=== PATIENT | female | born 1995 | race Caucasian/White ===

== ENCOUNTER → 2022-05-04 | Outpatient (CLI) | payer BC ==
[2022-05-04 22:49] LABS: HCT 29.5 % (37.2-46.3); HGB 9.9 g/dL (12.0-15.0); MCH 30.2 pg (27.0-32.0); MCHC 33.6 g/dL (32.0-37.0); MCV 89.9 fL (80.0-97.0); Mean Platelet Volume 10.6 fL (9.5-12.2); NRBC Per 100 WBC 0 /100 WBCS (0.0-0.0); Platelet Count 229 X 10*3/uL (140-440); RBC 3.28 X 10*6/uL (4.10-5.20); RDW 11.4 % (11.5-14.5); WBC 9.66 X 10*3/uL (4.50-10.00)
== END | disposition home or self-care (01) ==
LOC: LABWHC1 15:04
PROVIDERS: ATTEND Obstetrics & Gynecology Obstetrics
DX: Z36.9 Encounter for antenatal screening, unspecified (principal)
CPT/HCPCS: 36415; 82950; 85027

== ENCOUNTER 2022-07-13 10:56 | Inpatient (IN) | payer BC ==
[2022-07-14] MEDS: LACTATED RINGERS 1,000 ML IV SCH ×2 (06:30→16:31)
[2022-07-14] MEDS ORDERED: CARBOPROST TROMETHAMINE 250 MCG/ML 1 ML AMP IM PRN (07:55)
[2022-07-14] MEDS ORDERED: TERBUTALINE 1 MG/ML VIAL SQ PRN (07:55)
[2022-07-14] MEDS ORDERED: LIDOCAINE 0.5% (PF) 5 MG/ML (50 ML SDV) SQ PRN (07:55)
[2022-07-14] MEDS ORDERED: OXYTOCIN 10 UNIT/ML 1 ML VIAL IM PRN (07:55)
[2022-07-14] MEDS ORDERED: METHYLERGONOVINE 0.2 MG/ML 1 ML AMP IM PRN (07:55)
[2022-07-14] MEDS ORDERED: OXYTOCIN 30 UNITS/500 ML NS 30 UNIT in SALINE 1 500ML.BAG IV SCH ×2 (08:00→18:30)
[2022-07-14 08:33] LABS: Basophils % (A) 0 %; Eosinophils # (A) 0.1 k/uL (0-0.7); Eosinophils % (A) 1 %; HCT 29.6 % (34.0-46.0); HGB 10.1 gm/dL (11.4-16.0); Lymphocytes # (A) 1.3 k/uL (1.0-4.8); Lymphocytes % (A) 14 %; MCH 29.3 pg (25.0-35.0); MCHC 34.2 g/dL (31.0-37.0); MCV 85.8 fL (80.0-100.0); Mean Platelet Volume 9.7; Monocytes # (A) 0.4 k/uL (0-1.0); Monocytes % (A) 5 %; Neutrophils # (A) 6.8 k/uL (1.3-7.7); Neutrophils % (A) 79 %; Platelet Count 205 k/uL (150-450); RBC 3.45 m/uL (3.80-5.40); RDW 11.8 % (11.5-15.5); WBC 8.7 k/uL (3.8-10.6)
[2022-07-14] MEDS ORDERED: diphenhydrAMINE 25 MG CAP PO PRN (18:27)
[2022-07-14] MEDS ORDERED: diphenhydrAMINE 50 MG CAP PO PRN (18:27)
[2022-07-14] MEDS ORDERED: ZOLPIDEM 5 MG TAB PO PRN (18:27)
[2022-07-14] MEDS ORDERED: BENZOCAINE/MENTHOL SPRAY 1 GM/SPRAY AEROSOL TOPICAL PRN (18:27)
[2022-07-14] MEDS ORDERED: ACETAMINOPHEN TAB 325 MG TAB PO PRN (18:27)
[2022-07-14] MEDS ORDERED: LANOLIN CREAM 5 GM TUBE TOPICAL PRN (18:27)
[2022-07-14] MEDS ORDERED: HYDROCORTISONE 2.5% RECTAL CREAM 30 GM TUBE RECTAL PRN (18:27)
[2022-07-14] MEDS ORDERED: SIMETHICONE 80 MG CHEWABLE PO PRN (18:27)
[2022-07-14] MEDS ORDERED: diphenhydrAMINE 50 MG/ML 1 ML VIAL IVP PRN ×2 (18:27)
--- NOTE | 2022-07-14 18:31 | P.HPOB ---
History of Present Illness H&P Date: 07/14/22 Chief Complaint: IUP at 40-0/7 weeks This is a 27-year-old 1 para 0 at 40-0/7 weeks that presents to labor and delivery for elective induction of labor. Patient has been receiving routine care with myself which has been essentially uncomplicated. Patient notes good movement denies contractions vaginal bleeding or loss of fluid. Patient has a known blood type of B+, rubella status immune, B surface antigen negative, HIV negative, RPR is nonreactive, group beta strep culture negative. Review of Systems Constitutional: Denies chills, Denies fatigue, Denies fever Ears, nose, mouth and throat: Denies headache Cardiovascular: Reports leg edema Respiratory: Denies dyspnea Gastrointestinal: Denies constipation, Denies diarrhea, Denies nausea, Denies vomiting Genitourinary: Reports Past Medical History Past Medical History: No Reported History History of Any Multi-Drug Resistant Organisms: None Reported Past Surgical History: No Surgical Hx Reported Past Psychological History: No Psychological Hx Reported Smoking Status: Never smoker Past Alcohol Use History: None Reported Past Drug Use History: None Reported - Past Family History Mother Family Medical History: Diabetes Mellitus Medications and Allergies Allergies Allergy/AdvReac Type Severity Reaction Status Date / Time No Known Allergies Allergy Verified 07/14/22 06:57 Exam Osteopathic Statement: *. No significant issues noted on an osteopathic structural exam other than those noted in the History and Physical/Consult. Vital Signs Temp Pulse Resp BP Pulse Ox 07/14/22 06:32 98.2 F 100 16 119/65 100 Intake and Output 07/13/22 07/14/22 07/14/22 22:59 06:59 14:59 Other: Weight 72.575 kg Targeted physical exam is performed in this date and offset label rewinder a well-nourished well-developed female in no acute distress, breathing is noted to be nonlabored, heart has regular rhythm, abdomen is gravid and appropriate for gestational age, cervical exam is 1-2/50/-2 station amniotomy is performed and clear fluid was obtained. heart tones are noted to be category 1 and she is melanie irregularly. Results Result Diagrams: 07/14/22 06:50 Assessment and Plan (1) Term Current Visit: Yes Status: Acute Code(s): Z34.90 - ENCNTR FOR SUPRVSN OF NORMAL , UNSP, UNSP TRIMESTER SNOMED Code(s): 40181084 Plan: We 7-year-old 1 para 0 at 40-0/7 weeks that presents to labor and delivery for induction of labor. Patient was admitted to labor and delivery and Pitocin induction of labor was begun. Patient underwent amniotomy and clear fluid was obtained. Patient is offered Stadol/nitrous/epidural. Patient will consider but does wish to deliver unmedicated.
--- NOTE | 2022-07-14 18:36 | P.PROBDLV ---
Vaginal Delivery Note - . Vaginal Delivery Note: Viable male delivered at 1807, weight of 8 lbs. 0 oz., Apgars of 9 and 9 at one and 5 minutes respectfully. 27-year-old 1 para 0 at 40-0/7 weeks that presented to labor and delivery this morning for induction of labor. Patient was admitted and Pitocin induction of labor was begun. Patient has been receiving routine care which has been essentially uncomplicated. Patient progressed through labor making good progress. Patient progressed to complete and began pushing. With excellent maternal effort patient did bring the infant down to a presentation. Patient was placed in a modified lithotomy position and with excellent maternal effort the anterior/posterior shoulder was delivered followed by the body. A spontaneous cry was noted at . Prior to delivery a midline episiotomy was performed after instillation of lidocaine. After two-minute delayed the umbilical cord was doubly clamped and cut. The placenta was delivered spontaneously intact with a three-vessel cord being noted. The midline episiotomy was noted to be a second-degree in nature no extension was appreciated. After instillation with lidocaine the repair was completed with 3-0 Rapide. Hemostasis was appreciated after. Uterus is noted be firm and below the umbilicus. Once again the episiotomy was inspected and hemostasis was appreciated. All counts were noted to be correct 2 at the end of the delivery. Patient and tolerated delivery well and are resting comfortably.
[2022-07-14] MEDS ORDERED: SENNOSIDES-DOCUSATE SODIUM 1 EACH TAB PO SCH (20:00)
[2022-07-14] MEDS: IBUPROFEN 600 MG TAB PO SCH (20:09)
[2022-07-15] MEDS: IBUPROFEN 600 MG TAB PO SCH ×2 (02:10→08:58)
[2022-07-15 07:40] LABS: Basophils % (A) 0 %; Eosinophils % (A) 0 %; HCT 28.1 % (34.0-46.0); HGB 9.6 gm/dL (11.4-16.0); Lymphocytes % (A) 9 %; MCH 29.5 pg (25.0-35.0); MCHC 34.2 g/dL (31.0-37.0); MCV 86.3 fL (80.0-100.0); Mean Platelet Volume 8.8; Monocytes # (A) 0.6 k/uL (0-1.0); Monocytes % (A) 5 %; Neutrophils # (A) 9.6 k/uL (1.3-7.7); Neutrophils % (A) 84 %; Platelet Count 187 k/uL (150-450); RBC 3.25 m/uL (3.80-5.40); RDW 11.7 % (11.5-15.5); WBC 11.5 k/uL (3.8-10.6)
--- NOTE | 2022-07-15 08:31 | P.PNOBGVD ---
Subjective - Subjective Principal diagnosis: day 1 Interval history: Patient is doing well post . She is diet without nausea or vomiting. Her lochia is moderate. She is breast-feeding with some difficulty. Patient reports: Reports appetite normal, Reports voiding normally, Reports pain well controlled, Reports ambulating normally : doing well Objective - Latest Vital Signs Latest vital signs: Vital Signs Temp Pulse Resp BP Pulse Ox 07/15/22 03:30 98.8 F 85 15 118/70 99 07/14/22 23:36 16 07/14/22 23:35 99.1 F 90 16 92/50 07/14/22 20:13 98 16 117/60 07/14/22 19:43 92 16 118/69 07/14/22 19:13 98.2 F 86 16 119/67 07/14/22 18:58 94 16 120/66 07/14/22 18:43 92 16 118/67 07/14/22 18:24 111 H 16 117/67 07/14/22 18:13 98.0 F 113 H 16 114/65 Intake and Output 07/14/22 07/15/22 07/15/22 22:59 06:59 14:59 Intake Total 480 Output Total 228 Balance -228 480 Intake: Oral 480 Output: Estimated Blood Loss 150 Output, Quantitative 78 Blood Loss Other: Voiding Method Toilet # Voids 1 - Exam Extremities: Present: normal, edema Abdomen: Present: normal appearance, soft Uterus: Present: normal, firm - Labs Labs: Abnormal Lab Results - Last 24 Hours (Table) 07/14/22 07/15/22 Range/Units 06:50 06:57 WBC 11.5 H (3.8-10.6) k/uL RBC 3.45 L 3.25 L (3.80-5.40) m/uL Hgb 10.1 L 9.6 L (11.4-16.0) gm/dL Hct 29.6 L 28.1 L (34.0-46.0) % Neutrophils # 9.6 H (1.3-7.7) k/uL Assessment and Plan (1) Term Current Visit: Yes Status: Acute Code(s): Z34.90 - ENCNTR FOR SUPRVSN OF NORMAL , UNSP, UNSP TRIMESTER SNOMED Code(s): 25757775 (2) Status post vaginal delivery Current Visit: Yes Status: Acute Code(s): KFO5426 - SNOMED Code(s): 057274577 Plan: 27-year-old G1 now P1 status post normal spontaneous vaginal delivery with midline episiotomy no extension. Patient is doing well. Having some difficulty with breast-feeding. We'll continue routine care and anticipate discharge home tomorrow.
--- NOTE | 2022-07-15 13:53 | P.DS ---
Providers Date of admission: 07/14/22 06:00 Expected date of discharge: 07/15/22 Attending physician: Jessica Galloway Primary care physician: Stated None - Discharge Diagnosis(es) (1) Term Current Visit: Yes Status: Acute (2) Status post vaginal delivery Current Visit: Yes Status: Acute Hospital Course: Twice 7-year-old G1 now P1 presented to labor and delivery yesterday for scheduled induction of labor. Patient was noted to be 40-0/7 weeks. For full details on this patient please see the dictated history and physical. Patient was admitted to labor and delivery and Pitocin induction of labor was begun. Amniotomy was performed and clear fluid was obtained. Patient progressed through labor eventually becoming complete. Patient normal spent taste vaginal delivery of a viable male , weight of 8 lbs. 0 oz., Apgars of 9 and 9 at one and 5 minutes respect daily. Patient did have an episiotomy done just prior to delivery. Patient's course has been uneventful. On this day #1 she is ambulating and voiding without difficulty. She is tolerating a regular diet without nausea or vomiting. She states her pain is well-controlled. She is proceeding with some difficulty but does desire discharge home. Patient does desire circumcision prior to discharge. This will be completed prior to discharge. Patient Condition at Discharge: Good Plan - Discharge Summary Follow up Appointment(s)/Referral(s): Jessica Galloway DO [Doctor of Osteopathic Medicine] - 6 Weeks Patient Instructions/Handouts: Vaginal Delivery (GEN), Vaginal Delivery (DC) Activity/Diet/Wound Care/Special Instructions: care is reviewed. [id number] ibuprofen as needed for pain. Patient is counseled on moderate lochia . Should patient have any concerns prior to her routine 6 week check she is urged to call the office. Nothing in the vagina for 6 weeks , tub baths or intercourse. Discharge Disposition: HOME SELF-CARE
[2022-07-15 16:02] VITALS: BP 107/66; PULSE 94; RESP 18; TEMP 98
== END 2022-07-15 19:30 | disposition home or self-care (01) | DRG 807 ==
LOC: 4FBP 07-14 06:00
PROVIDERS: ADMIT Obstetrics & Gynecology Obstetrics; ATTEND Obstetrics & Gynecology Obstetrics
PROC: 4A0HXCZ Measurement of Products of Conception, Cardiac Rate, External Approach (ICD-10-PCS; principal; 2022-07-14)
PROC: 10E0XZZ Delivery of Products of Conception, External Approach (ICD-10-PCS; principal; 2022-07-14)
PROC: 10907ZC Drainage of Amniotic Fluid, Therapeutic from Products of Conception, Via Natural or Artificial Opening (ICD-10-PCS; principal; 2022-07-14)
PROC: 3E033VJ Introduction of Other Hormone into Peripheral Vein, Percutaneous Approach (ICD-10-PCS; principal; 2022-07-14)
PROC: 0W8NXZZ Division of Female Perineum, External Approach (ICD-10-PCS; principal; 2022-07-14)
DX: O80 Encounter for full-term uncomplicated delivery (principal); Z37.0 Single live birth; Z3A.40 40 weeks gestation of pregnancy
CPT/HCPCS: 85025; 86850; 86900; 86901

== ENCOUNTER 2024-12-03 19:46 | Emergency (ER) | payer BC ==
[2024-12-03] MEDS: ONDANSETRON 4 MG/2 ML VIAL IVP STA (20:45)
[2024-12-03] MEDS: SODIUM CHLORIDE 0.9% 2,000 ML IV STA (20:45)
[2024-12-03 21:24] LABS: Basophils % (A) 0 %; Eosinophils % (A) 0 %; HCT 35.3 % (34.0-46.0); HGB 11.7 gm/dL (11.4-16.0); Lymphocytes # (A) 0.3 k/uL (1.0-4.8); Lymphocytes % (A) 2 %; MCHC 33.2 g/dL (31.0-37.0); MCV 90.5 fL (80.0-100.0); Mean Platelet Volume 7.8; Monocytes # (A) 0.2 k/uL (0-1.0); Monocytes % (A) 2 %; Neutrophils # (A) 12.5 k/uL (1.3-7.7); Neutrophils % (A) 96 %; Platelet Count 248 k/uL (150-450); WBC 13.1 k/uL (3.8-10.6)
[2024-12-03 21:42] LABS: ALT 13 U/L (4-34); AST 20 U/L (14-36); African American GFR (CKD) >90 (>60 ml/min/1.73 sqM); Albumin 3.7 g/dL (3.5-5.0); Alkaline Phosphatase 78 U/L (38-126); Amylase 62 U/L (30-110); Anion Gap 12 mmol/L; Blood Urea Nitrogen 11 mg/dL (7-17); Calcium 8.4 mg/dL (8.4-10.2); Carbon Dioxide 17 mmol/L (22-30); Chloride 105 mmol/L (98-107); Glucose 113 mg/dL (74-99); Lipase 98 U/L (23-300); Non-African American GFR(CKD) >90 (>60 ml/min/1.73 sqM); Potassium 3.6 mmol/L (3.5-5.1); Sodium 134 mmol/L (137-145); Total Bilirubin 0.6 mg/dL (0.2-1.3); Total Protein 6.9 g/dL (6.3-8.2)
[2024-12-03 22:01] LABS: Influenza A Not Detected (Not Detectd); Influenza B Not Detected (Not Detectd); RSV Not Detected (Not Detectd)
[2024-12-03 22:37] LABS: Appearance,Urine Clear (Clear); Bilirubin,Urine Negative (Negative); Blood,Urine Negative (Negative); Color,Urine Yellow; Glucose,Urine (UA) Negative (Negative); Ketones,Urine 4+ (Negative); Leukocyte Esterase,Urine Negative (Negative); Nitrite,Urine Negative (Negative); PH, Urine 5.5 (5.0-8.0); Protein,Urine Trace (Negative); Specific Gravity,Urine 1.028 (1.001-1.035); Urobilinogen,Urine <2.0 mg/dL (<2.0)
[2024-12-03] MEDS: SODIUM CHLORIDE 0.9% 1,000 ML IV ONE (23:30)
[2024-12-03] MEDS: METOCLOPRAMIDE 5 MG/ML 2 ML VIAL IVP STA (23:31)
--- NOTE | 2024-12-04 00:55 | ED ---
Nausea/Vomiting/Diarrhea HPI - General Chief complaint: Nausea/Vomiting/Diarrhea Stated complaint: 25 weeks posb gas leak Time Seen by Provider: 12/03/24 20:11 Source: patient Mode of arrival: ambulatory Limitations: no limitations - History of Present Illness Initial comments: 29-year-old female currently 25 weeks presenting with chief complaint of nausea vomiting and diarrhea. Patient reports that her family members have recently been sick with similar symptoms. She is also experiencing chills. Patient called EMS because her was experiencing severe symptoms, she was told that there may be a natural gas leak at her home and she is concerned this may be causing her symptoms. She is having no pelvic pain or vaginal bleeding. She currently follows with Dr. Galloway and had her most recent appointment yesterday. No fever. No chest pain or difficulty breathing. No urinary symptoms. - Related Data Previous Rx's Medication Instructions Recorded Ondansetron Odt [Zofran Odt] 4 mg PO Q8HR PRN #20 tab 12/04/24 Allergies Allergy/AdvReac Type Severity Reaction Status Date / Time No Known Allergies Allergy Verified 12/03/24 19:51 Review of Systems ROS Statement: Those systems with pertinent positive or pertinent negative responses have been documented in the HPI. ROS Other: All systems not noted in ROS Statement are negative. Past Medical History Past Medical History: No Reported History History of Any Multi-Drug Resistant Organisms: None Reported Past Surgical History: No Surgical Hx Reported Past Psychological History: No Psychological Hx Reported Smoking Status: Never smoker Past Alcohol Use History: None Reported Past Drug Use History: None Reported - Past Family History Mother Family Medical History: Diabetes Mellitus General Exam Limitations: no limitations General appearance: alert, in no apparent distress Head exam: Present: atraumatic, normocephalic, normal inspection Eye exam: Present: normal appearance, EOMI Neck exam: Present: normal inspection. Absent: meningismus Respiratory exam: Present: normal lung sounds bilaterally. Absent: respiratory distress, wheezes, rales, rhonchi, stridor Cardiovascular Exam: Present: normal rhythm, tachycardia, normal heart sounds. Absent: systolic murmur, diastolic murmur, rubs, gallop, clicks Neurological exam: Present: alert, oriented X3 Psychiatric exam: Present: normal affect, normal mood Skin exam: Present: warm, dry Course Vital Signs 12/03/24 12/03/24 12/04/24 19:48 23:26 01:06 Temperature 98.6 F 98.8 F Pulse Rate 131 H 114 H 101 H Respiratory 18 18 16 Rate Blood Pressure 114/68 99/56 95/51 O2 Sat by Pulse 97 96 99 Oximetry Medical Decision Making - Medical Decision Making Was pt. sent in by a medical professional or institution (ARNAV Rivers, [employer], urgent care, hospital, or assisted...) When possible be specific @ -No Did you speak to anyone other than the patient for history (EMS, parent, family, police, friend...)? What history was obtained from this source @ -No Did you review nursing and triage notes (agree or disagree)? Why? @ -I reviewed and agree with nursing and triage notes Were old charts reviewed (outside hosp., previous admission, EMS record, old EKG, old radiological studies, urgent care reports/EKG's, assisted records)? Report findings @ -No old charts were reviewed Differential Diagnosis (chest pain, altered mental status, abdominal pain women, abdominal pain men, vaginal bleeding, weakness, fever, dyspnea, syncope, headache, dizziness, GI bleed, back pain, seizure, CVA, palpatations, mental health, musculoskeletal)? @ -Differential includes gastroenteritis, colitis, diverticulitis, not an all-inclusive list EKG interpreted by me (3pts min.). @ -EKG shows sinus tachycardia ventricular rate 105. NH interval 132. QRS 74. QT 355. QTc 416. No ST deviation. X-rays interpreted by me (1pt min.). @ -None done CT interpreted by me (1pt min.). @ -None done U/S interpreted by me (1pt. min.). @ -None done What testing was considered but not performed or refused? (CT, X-rays, U/S, labs)? Why? @ -None What meds were considered but not given or refused? Why? @ -None Did you discuss the management of the patient with other professionals (professionals i.e. ARNAV Rivers, [employer], lab, RT, psych nurse, social work therapist, community health navigator, teacher, data officer, correctional case records supervisor)? Give summary @ -No Was smoking cessation discussed for >3mins.? @ -No Was critical care preformed (if so, how long)? @ -No Were there social determinants of health that impacted care today? How? (Homelessness, low income, unemployed, alcoholism, drug addiction, transportation, low edu. Level, literacy, decrease access to med. care, long-term, rehab)? @ -No Was there de-escalation of care discussed even if they declined (Discuss DNR or withdrawal of care, Hospice)? DNR status @ -No What co-morbidities impacted this encounter? (DM, HTN, Smoking, COPD, CAD, Cancer, CVA, ARF, Chemo, Hep., AIDS, mental health diagnosis, sleep apnea, morbid obesity)? @ -None Was patient admitted / discharged? Hospital course, mention meds given and route , prescriptions, significant lab abnormalities, going to OR and other pertinent info. @ -29-year-old female presenting with chief complaint of nausea vomiting diarrhea. Currently 25 weeks . No pelvic pain or vaginal bleeding. History and physical examination are conducted. Patient is tachycardic and appears dehydrated. She started on IV fluids. She is given Zofran and Reglan. heart tones are WNL ranging from 157-171 according to family RN. WBC 13.1 which may be reactive. Patient was told there may be a natural gas leak at her home. Carbon monoxide level was 2.1. 4+ ketones in the urine likely due to dehydration. No leukocytes. Negative for influenza, RSV, COVID. On reassessment after IV hydration and antiemetics patient reports improvement in her symptoms. She is provided with Zofran for home and educated on today's findings and supportive management. Follow-up with [employer]. Follow-up with PCP. Report back to ER with any new or worsening symptoms. Discussed return parameters and answered all questions. Patient conveyed verbal understanding and agreed to the plan. I discussed this case in detail with my attending Dr. Weeks Undiagnosed new problem with uncertain prognosis? @ -No Drug Therapy requiring intensive monitoring for toxicity (Heparin, Nitro, Insulin, Cardizem)? @ -No Were any procedures done? @ -No Diagnosis/symptom? @ -Gastroenteritis Acute, or Chronic, or Acute on Chronic? @ -Acute Uncomplicated (without systemic symptoms) or Complicated (systemic symptoms)? @ -Complicated Side effects of treatment? @ -No Exacerbation, Progression, or Severe Exacerbation? @ -No Poses a threat to life or bodily function? How? (Chest pain, USA, SC, pneumonia, PE, COPD, DKA, ARF, appy, cholecystitis, CVA, Diverticulitis, Homicidal, Suicidal, threat to staff... and all critical care pts) @ -Low likelihood - Lab Data Result diagrams: 12/03/24 21:00 12/03/24 21:00 Lab Results 12/03/24 12/03/24 12/03/24 Range/Units 21:00 21:00 21:00 WBC 13.1 H (3.8-10.6) k/uL RBC 3.90 (3.80-5.40) m/uL Hgb 11.7 (11.4-16.0) gm/dL Hct 35.3 (34.0-46.0) % MCV 90.5 (80.0-100.0) fL MCH 30.0 (25.0-35.0) pg MCHC 33.2 (31.0-37.0) g/dL RDW 12.0 (11.5-15.5) % Plt Count 248 (150-450) k/uL MPV 7.8 Neutrophils % 96 % Lymphocytes % 2 % Monocytes % 2 % Eosinophils % 0 % Basophils % 0 % Neutrophils # 12.5 H (1.3-7.7) k/uL Lymphocytes # 0.3 L (1.0-4.8) k/uL Monocytes # 0.2 (0-1.0) k/uL Eosinophils # 0.0 (0-0.7) k/uL Basophils # 0.0 (0-0.2) k/uL Carbon Monoxide, Quant (<10.0) % Sodium 134 L (137-145) mmol/L Potassium 3.6 (3.5-5.1) mmol/L Chloride 105 (98-107) mmol/L Carbon Dioxide 17 L (22-30) mmol/L Anion Gap 12 mmol/L BUN 11 (7-17) mg/dL Creatinine 0.41 L (0.52-1.04) mg/dL Est GFR (CKD-EPI)AfAm >90 (>60 ml/min/1.73 sqM) Est GFR (CKD-EPI)NonAf >90 (>60 ml/min/1.73 sqM) Glucose 113 H (74-99) mg/dL Calcium 8.4 (8.4-10.2) mg/dL Total Bilirubin 0.6 (0.2-1.3) mg/dL AST 20 (14-36) U/L ALT 13 (4-34) U/L Alkaline Phosphatase 78 (38-126) U/L Total Protein 6.9 (6.3-8.2) g/dL Albumin 3.7 (3.5-5.0) g/dL Amylase 62 (30-110) U/L Lipase 98 (23-300) U/L Urine Color Urine Appearance (Clear) Urine pH (5.0-8.0) Ur Specific [place] (1.001-1.035) Urine Protein (Negative) Urine Glucose (UA) (Negative) Urine Ketones (Negative) Urine Blood (Negative) Urine Nitrite (Negative) Urine Bilirubin (Negative) Urine Urobilinogen (<2.0) mg/dL Ur Leukocyte Esterase (Negative) Influenza Type A (PCR) Not Detected (Not Detectd) Influenza Type B (PCR) Not Detected (Not Detectd) RSV (PCR) Not Detected (Not Detectd) SARS-CoV-2 (PCR) Not Detected (Not Detectd) 12/03/24 12/03/24 Range/Units 21:00 22:30 WBC (3.8-10.6) k/uL RBC (3.80-5.40) m/uL Hgb (11.4-16.0) gm/dL Hct (34.0-46.0) % MCV (80.0-100.0) fL MCH (25.0-35.0) pg MCHC (31.0-37.0) g/dL RDW (11.5-15.5) % Plt Count (150-450) k/uL MPV Neutrophils % % Lymphocytes % % Monocytes % % Eosinophils % % Basophils % % Neutrophils # (1.3-7.7) k/uL Lymphocytes # (1.0-4.8) k/uL Monocytes # (0-1.0) k/uL Eosinophils # (0-0.7) k/uL Basophils # (0-0.2) k/uL Carbon Monoxide, Quant 2.1 (<10.0) % Sodium (137-145) mmol/L Potassium (3.5-5.1) mmol/L Chloride (98-107) mmol/L Carbon Dioxide (22-30) mmol/L Anion Gap mmol/L BUN (7-17) mg/dL Creatinine (0.52-1.04) mg/dL Est GFR (CKD-EPI)AfAm (>60 ml/min/1.73 sqM) Est GFR (CKD-EPI)NonAf (>60 ml/min/1.73 sqM) Glucose (74-99) mg/dL Calcium (8.4-10.2) mg/dL Total Bilirubin (0.2-1.3) mg/dL AST (14-36) U/L ALT (4-34) U/L Alkaline Phosphatase (38-126) U/L Total Protein (6.3-8.2) g/dL Albumin (3.5-5.0) g/dL Amylase (30-110) U/L Lipase (23-300) U/L Urine Color Yellow Urine Appearance Clear (Clear) Urine pH 5.5 (5.0-8.0) Ur Specific [place] 1.028 (1.001-1.035) Urine Protein Trace H (Negative) Urine Glucose (UA) Negative (Negative) Urine Ketones 4+ H (Negative) Urine Blood Negative (Negative) Urine Nitrite Negative (Negative) Urine Bilirubin Negative (Negative) Urine Urobilinogen <2.0 (<2.0) mg/dL Ur Leukocyte Esterase Negative (Negative) Influenza Type A (PCR) (Not Detectd) Influenza Type B (PCR) (Not Detectd) RSV (PCR) (Not Detectd) SARS-CoV-2 (PCR) (Not Detectd) Disposition Clinical Impression: Gastroenteritis Disposition: HOME SELF-CARE Condition: Good Instructions (If sedation given, give patient instructions): Dehydration (DC), Gastroenteritis (ED) Additional Instructions: Follow-up with PCP and [employer]. Report back to ER with any new or worsening symptoms. Take medication as prescribed. Prescriptions: Ondansetron Odt [Zofran Odt] 4 mg PO Q8HR PRN #20 tab PRN Reason: Nausea Is patient prescribed a controlled substance at d/c from ED?: No Referrals: Jessica Galloway DO [Primary Care Provider] - 1-2 days Time of Disposition: 00:54
[2024-12-04 01:07] VITALS: BP 95/51; PULSE 101; RESP 16; TEMP 98.8
== END 2024-12-04 01:07 | disposition home or self-care (01) ==
LOC: EC 19:46
DX: O99.612 Diseases of the digestive system complicating pregnancy, second trimester (principal); K52.9 Noninfective gastroenteritis and colitis, unspecified; Z3A.25 25 weeks gestation of pregnancy
CPT/HCPCS: 36415; 93005; 80053; 82150; 82375; 83690; 85025; 81003; 87636; 99284; 96374; 96375; 96361 ×3; J2765; J2405

== ENCOUNTER 2025-03-16 14:24 | Outpatient (CLI) | payer BC ==
[2025-03-16 15:43] LABS: Basophils # (A) 0.02 10*3/uL (0.00-0.10); Basophils % (A) 0.2 %; Eosinophils # (A) 0.01 10*3/uL (0.04-0.35); Eosinophils % (A) 0.1 %; HCT 30.1 % (37.2-46.3); HGB 10.1 g/dL (12.0-15.0); Lymphocytes # (A) 0.33 10*3/uL (0.90-5.00); MCH 27.7 pg (27.0-32.0); MCHC 33.6 g/dL (32.0-37.0); MCV 82.7 fL (80.0-97.0); Mean Platelet Volume 10.4 fL (9.5-12.2); Monocytes # (A) 0.32 10*3/uL (0.20-1.00); Neutrophils # (A) 10.06 10*3/uL (1.80-7.70); Neutrophils % (A) 92.8 %; Platelet Count 191 10*3/uL (140-440); RBC 3.64 10*6/uL (4.10-5.20); RDW 11.8 % (11.5-14.5); WBC 10.84 10*3/uL (4.50-10.00)
[2025-03-16] MEDS ORDERED: LACTATED RINGERS 1,000 ML IV SCH (15:45)
[2025-03-16] MEDS: LACTATED RINGERS 1,000 ML IV ONE (15:51)
[2025-03-16] MEDS: FAMOTIDINE 20 MG/2 ML VIAL IV STA (15:53)
[2025-03-16] MEDS: ONDANSETRON 4 MG/2 ML VIAL IVP STA (15:54)
[2025-03-16 17:00] LABS: Appearance,Urine Clear (Clear); Bilirubin,Urine Negative (Negative); Blood,Urine Negative (Negative); Color,Urine Yellow; Glucose,Urine (UA) Negative (Negative); Ketones,Urine 4+ (Negative); Leukocyte Esterase,Urine Negative (Negative); Nitrite,Urine Negative (Negative); Protein,Urine Trace (Negative); Specific Gravity,Urine 1.029 (1.001-1.035); Urobilinogen,Urine <2.0 mg/dL (<2.0)
[2025-03-16 18:18] VITALS: BP 95/50; PULSE 130; RESP 16; TEMP 99.5
--- NOTE | 2025-03-27 13:35 | P.MSEPDOC ---
Presenting Problems - Arrival Data Date of Arrival on Unit: 03/16/25 Time of Arrival on Unit: 15:20 Mode of Transport: Ambulatory - Complaint OB-Reason for Admission/Chief Complaint: Decreased Movement, Acute Nausea/Vomiting Comment: n/v since last night. decreased movement ,and rt sided mid back pain for 5 weeks. also with first baby. Medical History - Information : 2 Para: 1 Term: 1 : 0 Abortions: Spontaneous or Elective: 0 Number of Living Children: 1 - Gestational Age Gestational Age by MICHELLE (wks/days): 40 Weeks and 0 Days Review of Systems - Review of Systems Constitutional: No problems Breast: No problems ENT: No problems Cardiovascular: No problems Respiratory: No problems Gastrointestinal: No problems Genitourinary: No problems Musculoskeletal: No problems Neurological: No problems Skin: No problems Vital Signs - Temperature Temperature: 99.5 F Temperature Source: Temporal Artery Scan - Pulse Right Apical Pulse Rate: 130 Pulse Assessment Method: Auscultation - Respirations Respiratory Rate: 16 Oxygen Delivery Method: Room Air - Blood Pressure Right Arm Blood Pressure: 95/50 Blood Pressure Mean: 65 Blood Pressure Source: Automatic Cuff Medical Screen Scoring - Cervical Exam Dilation (cm): 0 - Uterine Contractions Intensity: Absent Resting: Soft to palpation - Assessment - Baby A Baseline FHR: 150 Heart Rate - NICHD Category: Category I (Normal) NST: Reactive Physician Notification - Physician Notified Physician Notified Date: 03/16/25 Physician Notified Time: 15:20 Physician: Marlys New Order Received: Yes - Notification Comment Comment: iv hyderation, zofran,pepsid, and heat to back Maternal Triage Index - Non-Urgent/Priority 4 Non-Urgent Priority 4: Yes Criteria Met for Priority 4: n/v, pain on mid rt side of back, and decreased movement Disposition - Disposition OB Disposition: Discharge to home, Written follow up instructions reviewed Discharge Date: 03/16/25 Discharge Time: 18:00 I agree with the RN Medical Screening Exam: Yes Physician's MSE Comment: I have neither seen nor examined the patient Case reviewed; plan agreed upon as documented in EMR&OBIX.: Yes Diagnosis: LATE VOMITING OF
== END 2025-03-16 18:00 | disposition home or self-care (01) ==
LOC: FBPOP 14:24
PROVIDERS: ATTEND Obstetrics & Gynecology
DX: O36.8130 Decreased fetal movements, third trimester, not applicable or unspecified (principal); Z3A.40 40 weeks gestation of pregnancy
CPT/HCPCS: 59025; 99214; 96361; 96374; 96375; 36415; 85025; 81003; J2405; J1308

== ENCOUNTER 2025-03-17 00:52 | Inpatient (IN) | payer BC ==
[2025-03-17] MEDS ORDERED: TRANEXAMIC 1,000 MG/100ML-NACL 1,000 MG in EMPTY BAG 1 BAG IV PRN (01:03)
[2025-03-17] MEDS ORDERED: TERBUTALINE 1 MG/ML VIAL SQ PRN (01:03)
[2025-03-17] MEDS ORDERED: CARBOPROST TROMETHAMINE 250 MCG/ML 1 ML AMP IM PRN (01:03)
[2025-03-17] MEDS ORDERED: METHYLERGONOVINE 0.2 MG/ML 1 ML AMP IM PRN (01:03)
[2025-03-17] MEDS ORDERED: OXYTOCIN 10 UNIT/ML 1 ML VIAL IM PRN (01:03)
[2025-03-17 01:18] VITALS: RESP 16
[2025-03-17 01:46] LABS: Basophils # (A) 0.02 10*3/uL (0.00-0.10); Basophils % (A) 0.2 %; Eosinophils # (A) 0.00 10*3/uL (0.04-0.35); Eosinophils % (A) 0.0 %; HCT 28.3 % (37.2-46.3); HGB 9.3 g/dL (12.0-15.0); Lymphocytes # (A) 0.44 10*3/uL (0.90-5.00); Lymphocytes % (A) 4.4 %; MCH 27.3 pg (27.0-32.0); MCHC 32.9 g/dL (32.0-37.0); MCV 83.0 fL (80.0-97.0); Monocytes # (A) 0.46 10*3/uL (0.20-1.00); Monocytes % (A) 4.6 %; Neutrophils # (A) 8.83 10*3/uL (1.80-7.70); Neutrophils % (A) 89.1 %; Platelet Count 170 10*3/uL (140-440); RBC 3.41 10*6/uL (4.10-5.20); RDW 11.9 % (11.5-14.5); WBC 9.92 10*3/uL (4.50-10.00)
[2025-03-17] MEDS: LACTATED RINGERS 1,000 ML IV SCH (02:00)
--- NOTE | 2025-03-17 02:59 | P.HPOB ---
History of Present Illness H&P Date: 03/17/25 Chief Complaint: Contractions Ms. Lamarborn is a 29 year old at 40 weeks and 1 day with EDC of 03/16/2025 by LMP consistent with 13 week US who presents in active labor at 6 centimeters. Her has been complicated by anemia of . Obstetric history: 1 FTVD, male, 8# work-up: blood type B positive, antibody screen negative, rubella immune, HBsAG negative, HIV negative, VDRL non-reactive, HCV non-reactive, gonorrhea negative, chlamydia negative, 1 hour GTT wnl, GBS negative. Past Medical History Past Medical History: No Reported History History of Any Multi-Drug Resistant Organisms: None Reported Past Surgical History: No Surgical Hx Reported Past Psychological History: No Psychological Hx Reported Smoking Status: Never smoker Past Alcohol Use History: None Reported Past Drug Use History: None Reported - Past Family History Mother Family Medical History: Diabetes Mellitus Medications and Allergies Allergies Allergy/AdvReac Type Severity Reaction Status Date / Time No Known Allergies Allergy Verified 03/17/25 00:53 Exam Vital Signs Temp Pulse Resp BP 03/17/25 01:02 98.0 F 91 16 100/58 Intake and Output 03/16/25 03/16/25 03/17/25 14:59 22:59 06:59 Other: Weight 68.039 kg Focused physical exam is performed. This is a healthy-appearing in no apparent distress. Breathing is non-labored. Abdomen is gravid and non-tender. Cervical exam is anterior lip, 0 station. AROM is undertaken with clear fluid noted. Extremities non-tender and non-edematous. heart tones are Category I and tocometer is graphing contractions every 2-4 minutes. Results Result Diagrams: 03/17/25 01:15 Abnormal Lab Results - Last 24 Hours (Table) 03/17/25 Range/Units 01:15 RBC 3.41 L (4.10-5.20) 10*6/uL Hgb 9.3 L (12.0-15.0) g/dL Hct 28.3 L (37.2-46.3) % Immature Gran # 0.17 H (0.00-0.04) 10*3/uL Neutrophils # 8.83 H (1.80-7.70) 10*3/uL Lymphocytes # 0.44 L (0.90-5.00) 10*3/uL Eosinophils # 0.00 L (0.04-0.35) 10*3/uL Assessment and Plan Assessment: 29 year old at 40 weeks and 1 day in active labor Plan: Admit, clear liquid diet, patient declines epidural, continuous EFM and tocometer, anticipate vaginal delivery
[2025-03-17] MEDS ORDERED: diphenhydrAMINE 25 MG CAP PO PRN (03:01)
[2025-03-17] MEDS ORDERED: LANOLIN CREAM 1 GM TUBE TOPICAL PRN (03:01)
[2025-03-17] MEDS ORDERED: BENZOCAINE/MENTHOL SPRAY 1 GM/SPRAY AEROSOL TOPICAL PRN (03:01)
[2025-03-17] MEDS ORDERED: SIMETHICONE 80 MG CHEWABLE PO PRN (03:01)
[2025-03-17] MEDS ORDERED: ZOLPIDEM 5 MG TAB PO PRN (03:01)
[2025-03-17] MEDS ORDERED: HYDROCORTISONE 2.5% RECTAL CREAM 30 GM TUBE RECTAL PRN (03:01)
[2025-03-17] MEDS ORDERED: diphenhydrAMINE 50 MG/ML 1 ML VIAL IVP PRN ×2 (03:01)
--- NOTE | 2025-03-17 03:01 | P.PROBDLV ---
Vaginal Delivery Note - . Vaginal Delivery Note: DATE OF SERVICE: 03/17/2025 PROCEDURE: Normal Vaginal Delivery ATTENDING: Dr. Beckie Mcmillan MD ESTIMATED BLOOD LOSS: 200 mL FINDINGS: VFI, Apgars 9/10. Weight 7 pounds and 10 ounces (3480 grams) PROCEDURE: Ms. Ocampo is a 29 year old at 40 weeks and 1 day gestation presenting to labor and delivery in active labor. The has been essentially uncomplicated. For further details, please review the admitting H&P. The patient was completely dilated at 225. She pushed effectively with Category I FHTs. A viable female infant was delivered at 232 without difficulty. The was placed on the maternal abdomen and bulb suctioned. The was no phani to be spontaneously crying. Cord was clamped and cut after a 2-minute delay. The infant was handed off to the pediatric team. Placenta was delivered whole with gentle cord traction at 236. Oxytocin was started to facilitate uterine tone. Uterine fundus was found to be firm and below the umbilicus upon fundal massage. Thorough examination of the cervix, vagina, periurethral area, and perineum revealed a second degree midline laceration. The perineum was infiltrated with lidocaine and repaired with 2-0 Vicryl in the usual fashion. The patient is stable and allowed to begin the bonding process.
[2025-03-17] MEDS: LIDOCAINE 0.5% (PF) 5 MG/ML (50 ML SDV) SQ PRN (03:02)
[2025-03-17] MEDS: ACETAMINOPHEN TAB 500 MG TAB PO SCH (09:07)
[2025-03-17] MEDS: IBUPROFEN 800 MG TAB PO SCH (09:08)
[2025-03-17] MEDS: SENNOSIDES-DOCUSATE SODIUM 1 EACH TAB PO SCH (09:08)
[2025-03-18 06:48] LABS: Basophils # (A) 0.02 10*3/uL (0.00-0.10); Basophils % (A) 0.3 %; Eosinophils # (A) 0.03 10*3/uL (0.04-0.35); Eosinophils % (A) 0.4 %; HCT 29.3 % (37.2-46.3); HGB 9.8 g/dL (12.0-15.0); Lymphocytes # (A) 0.78 10*3/uL (0.90-5.00); Lymphocytes % (A) 11.7 %; MCH 27.7 pg (27.0-32.0); MCHC 33.4 g/dL (32.0-37.0); MCV 82.8 fL (80.0-97.0); Monocytes # (A) 0.69 10*3/uL (0.20-1.00); Monocytes % (A) 10.3 %; Neutrophils # (A) 5.10 10*3/uL (1.80-7.70); Neutrophils % (A) 76.3 %; Platelet Count 189 10*3/uL (140-440); RBC 3.54 10*6/uL (4.10-5.20); RDW 11.9 % (11.5-14.5); WBC 6.69 10*3/uL (4.50-10.00)
[2025-03-18 08:04] VITALS: BP 97/63; PULSE 82; TEMP 98.1
--- NOTE | 2025-03-18 08:22 | P.DS ---
Providers Date of admission: 03/17/25 01:01 Expected date of discharge: 03/18/25 Attending physician: Jessica Galloway Primary care physician: Stated None - Discharge Diagnosis(es) (1) Status post vaginal delivery Current Visit: No Status: Acute (2) Term Current Visit: No Status: Acute Hospital Course: This is a 29-year-old 2 now para 2 that presented to labor and delivery at 40 and 1 sevenths weeks in active labor. For full details on this patient please see the dictated history and physical. Patient been receiving routine care which has been essentially uncomplicated. Patient was noted to be 7 cm upon presentation and quickly progressed to complete began pushing and had a normal spontaneous vaginal delivery of a viable female at 232, weight of 7 pounds 10 ounces, Apgars of 9 and 10 at 1 and 5 minutes respectively. Second-degree midline laceration was appreciated at the time of delivery and repaired in the usual fashion. Patient's course has been uneventful. And is day #1 she is ambulating and voiding without difficulty. She is tolerating a regular diet without nausea or vomiting. She states her pain is well-controlled. She would like discharge home today. Patient Condition at Discharge: Good Plan - Discharge Summary Follow up Appointment(s)/Referral(s): Jessica Galloway DO [Doctor of Osteopathic Medicine] - 04/29/25 1:00 pm Patient Instructions/Handouts: Vaginal Delivery (DC), Vaginal Delivery (GEN) Activity/Diet/Wound Care/Special Instructions: [id number] ibuprofen 600 mg or 3 tablets every 6 hours as needed for pain. No tub baths or intercourse until 6 weeks . Routine check at 6 weeks. Should she have any concerns prior to this visit she is urged to call the office to be seen prior Discharge Disposition: HOME SELF-CARE
== END 2025-03-18 10:35 | disposition home or self-care (01) | DRG 807 ==
LOC: FBPOP 00:52 → 4FBP 01:01
PROVIDERS: ADMIT Obstetrics & Gynecology; ATTEND Obstetrics & Gynecology Obstetrics
PROC: 10E0XZZ Delivery of Products of Conception, External Approach (ICD-10-PCS; principal; 2025-03-17)
PROC: 0KQM0ZZ Repair Perineum Muscle, Open Approach (ICD-10-PCS; 2025-03-17)
PROC: 3E033VJ Introduction of Other Hormone into Peripheral Vein, Percutaneous Approach (ICD-10-PCS; 2025-03-17)
PROC: 10907ZC Drainage of Amniotic Fluid, Therapeutic from Products of Conception, Via Natural or Artificial Opening (ICD-10-PCS; 2025-03-17)
DX: O48.0 Post-term pregnancy (principal); Z37.0 Single live birth; O70.1 Second degree perineal laceration during delivery; O99.02 Anemia complicating childbirth; Z3A.40 40 weeks gestation of pregnancy
CPT/HCPCS: 85025; 86850; 86900; 86901; 99213